=== PATIENT | male | born 1950 | race Caucasian/White ===

== ENCOUNTER → 2022-07-24 | Outpatient (CLI) | payer MEDICARE ==
--- NOTE | 2022-07-24 12:26 | US ---
EXAMINATION TYPE: US MSK right shoulder DATE OF EXAM: 07/24/2022 Comparison: No radiographic correlation available Clinical History: 72-year-old male M25.511 PAIN IN RT SHOULDER TECHNIQUE: Multiple sonographic images of the right shoulder were obtained. Findings: Some tissue is noted in the bicipital groove on transverse images. However, no clear tendon is identi fied on the longitudinal images. Some heterogeneous fluid is noted superiorly along the groove. There is heterogeneity and some thinning of the subscapularis tendon. There is a significant tear elsa suring at least 5 mm long. The normal subscapularis tendon fibers are not clearly depicted on transve rse imaging. At least mild degenerative change at the acromioclavicular joint. Limited assessment of the posterior shoulder due to tissue quality. There appears to be some joint fl uid within the posterior recess of the glenohumeral joint. The spinoglenoid groove appears clear. There is a massive full thickness tear involving the entire supraspinatus and infraspinatus tendons. Bursal fluid sits on top of the humeral head. The retracted stump is not clearly identified. Very echogenic appearance to both supraspinatus and infraspinatus muscle bellies. Impression: 1. Massive full thickness tear involving the entire supraspinatus and infraspinatus tendons. Acute on chronic injuries are favored given some bursal fluid in this region but also the presence of signifi cant fatty muscle atrophy. 2. The subscapularis tendon is at least partially torn. 3. Suspect torn and retracted long head biceps tendon.
== END | disposition home or self-care (01) ==
LOC: RADUSWWP 08:53
PROVIDERS: ATTEND Orthopaedic Surgery
DX: M75.101 Unspecified rotator cuff tear or rupture of right shoulder, not specified as traumatic (principal); M67.813 Other specified disorders of tendon, right shoulder

== ENCOUNTER → 2024-05-09 | Outpatient (CLI) | payer MEDICARE ==
--- NOTE | 2024-05-09 17:58 | CT ---
EXAMINATION TYPE: CT shoulder RT wo con DATE OF EXAM: 05/09/2024 5:55 PM COMPARISON: None CLINICAL INDICATION: Male, 74 years old with history of S92.352A DISP FX OF FIFTH METATARSAL BONE, LE FT FO; PHH, pre-op right total shoulder TECHNIQUE: Axial images were obtained of the CT shoulder RT wo con, Additional coronal and sagittal r eformatted images and soft tissue and bone window were obtained for review. 3-D reconstruction was cr eated on a separate workstation. Contrast used: mL of , (None if empty) Oral contrast used: (None if empty) CT DLP: 639.9 mGycm, Automated exposure control for dose reduction was used. FINDINGS: Mild degeneration changes of the glenohumeral and a common clavicular joints with osteophyt e formation and joint space narrowing. No significant subchondral cystic change identified. No eviden ce of fracture. There is a simple air cysts and cardiac conduction leads partially visualized in the chest. No evidence of fracture. There is high riding humeral head into the acromion with early acetab ularization of the acromion suggesting full-thickness rotator cuff tear. IMPRESSION: 1. No evidence of fracture. 2. Mild degeneration changes with evidence of full-thickness rotator cuff tear of the supraspinous w ith high riding humeral head into the acromion. [facility], , 05/09/2024 5:55 PM
== END | disposition home or self-care (01) ==
LOC: RADCTMAIN 16:43
PROVIDERS: ATTEND Orthopaedic Surgery Sports Medicine
DX: S92.352A Displaced fracture of fifth metatarsal bone, left foot, initial encounter for closed fracture (principal); M19.011 Primary osteoarthritis, right shoulder; M75.121 Complete rotator cuff tear or rupture of right shoulder, not specified as traumatic; X58.XXXA Exposure to other specified factors, initial encounter

== ENCOUNTER → 2024-05-19 | Outpatient (CLI) | payer MEDICARE ==
[2024-05-19 13:10] LABS: INR 0.9 (<1.2); Partial Thromboplastin Time 24.4 sec (22.0-30.0); Prothrombin Time 10.6 sec (10.0-12.5)
[2024-05-19 18:40] LABS: HCT 44.8 % (39.6-50.0); HGB 14.7 g/dL (13.0-17.0); MCH 31.5 pg (27.0-32.0); MCHC 32.8 g/dL (32.0-37.0); MCV 96.1 FL (80.0-97.0); NRBC Per 100 WBC 0 X 10*3/uL (0.00-0.01); Platelet Count 225 X 10*3/uL (140-440); RBC 4.66 X 10*6/uL (4.40-5.60); RDW 12.7 % (11.5-14.5); WBC 5.34 X 10*3/uL (4.50-10.00)
[2024-05-19 19:18] LABS: ALT 20 U/L (10-49); AST 21 U/L (14-35); Albumin 4.4 g/dL (3.8-4.9); Alkaline Phosphatase 66 U/L (41-126); BUN/Creat Ratio 14.55 Ratio (12.00-20.00); Calcium 9.7 mg/dL (8.7-10.3); Carbon Dioxide 23.8 mmol/L (21.6-31.8); Chloride 107 mmol/L (96-109); Globulin 2.1 g/dL (1.6-3.3); Glucose 90 mg/dL (70-110); Potassium 4.2 mmol/L (3.5-5.5); Sodium 143 mmol/L (135-145); Total Bilirubin 0.6 mg/dL (0.3-1.2); Total Protein 6.5 g/dL (6.2-8.2)
== END | disposition home or self-care (01) ==
LOC: LABPAT 11:49
PROVIDERS: ATTEND Internal Medicine
DX: Z01.818 Encounter for other preprocedural examination (principal); M19.90 Unspecified osteoarthritis, unspecified site; I44.30 Unspecified atrioventricular block; I44.7 Left bundle-branch block, unspecified; R94.31 Abnormal electrocardiogram [ECG] [EKG]; Z22.322 Carrier or suspected carrier of Methicillin resistant Staphylococcus aureus
CPT/HCPCS: 36415; 80053; 85027; 85610; 85730; 87070; 93005

== ENCOUNTER → 2024-08-12 | Outpatient (CLI) | payer MEDICARE ==
[2024-08-12 12:58] LABS: INR 0.8 (<1.2); Prothrombin Time 9.7 sec (10.0-12.5)
[2024-08-12 12:59] LABS: Partial Thromboplastin Time 23.4 sec (22.0-30.0)
[2024-08-12 15:27] LABS: HCT 42.6 % (39.6-50.0); HGB 14.1 g/dL (13.0-17.0); MCH 30.6 pg (27.0-32.0); MCHC 33.1 g/dL (32.0-37.0); MCV 92.4 FL (80.0-97.0); Mean Platelet Volume 10.8 FL (9.5-12.2); NRBC Per 100 WBC 0 X 10*3/uL (0.00-0.01); Platelet Count 213 X 10*3/uL (140-440); RBC 4.61 X 10*6/uL (4.40-5.60); RDW 12.9 % (11.5-14.5); WBC 7.17 X 10*3/uL (4.50-10.00)
[2024-08-12 15:31] LABS: ALT 18 U/L (10-49); AST 20 U/L (14-35); Albumin 4.1 g/dL (3.8-4.9); Albumin/Globulin Ratio 2.05 Ratio (1.60-3.17); Alkaline Phosphatase 78 U/L (41-126); BUN/Creat Ratio 22.88 Ratio (12.00-20.00); Blood Urea Nitrogen 18.3 mg/dL (9.0-27.0); Calcium 9.2 mg/dL (8.7-10.3); Carbon Dioxide 22.3 mmol/L (21.6-31.8); Chloride 107 mmol/L (96-109); Glucose 102 mg/dL (70-110); Potassium 4.3 mmol/L (3.5-5.5); Sodium 140 mmol/L (135-145); Total Bilirubin 0.4 mg/dL (0.3-1.2); Total Protein 6.1 g/dL (6.2-8.2)
== END | disposition home or self-care (01) ==
LOC: LABPAT 11:57
PROVIDERS: ATTEND Orthopaedic Surgery Sports Medicine
DX: Z01.812 Encounter for preprocedural laboratory examination (principal); T84.028A Dislocation of other internal joint prosthesis, initial encounter; Z22.322 Carrier or suspected carrier of Methicillin resistant Staphylococcus aureus
CPT/HCPCS: 80053; 85027; 85610; 85730; 87070

== ENCOUNTER 2024-08-15 11:42 | Day surgery (SDC) | payer MEDICARE ==
[~2024-08-15 11:42] MED LIST: TRANEXAMIC 1,000 MG/100ML-NACL 1,000 MG in SALINE 1 100ML.BAG IVPB PRN; fentaNYL (PF) 50 MCG/ML 2 ML AMP IV PRN
[2024-08-15] MEDS: MELOXICAM 7.5 MG TAB PO PRN (12:55)
[2024-08-15] MEDS: GABAPENTIN 300 MG CAP PO PRN (12:55)
[2024-08-15] MEDS: ACETAMINOPHEN TAB 500 MG TAB PO PRN (12:55)
[2024-08-15] MEDS: ONDANSETRON 4 MG/2 ML VIAL IVP PRN (12:56)
[2024-08-15] MEDS: DEXAMETHASONE SOD PHOSPHATE 4 MG/ML 1 ML VIAL IVP STA (12:57)
[2024-08-15] MEDS: IV FLUID CONTINUATION 1,000 ML IV ONE (13:10)
[2024-08-15] MEDS: MIDAZOLAM 2 MG/2 ML VIAL IV STA (14:13)
--- NOTE | 2024-08-15 14:20 | P.ANPRN ---
Procedure Note - Anesthesia - Nerve Block Performed Right Interscalene Single Time Out Performed: Yes Date of Procedure: 08/15/24 Procedure Start Time: 13:53 Procedure Stop Time: 13:59 Location of Patient: PreOp Indication: Acute Post-Operative Pain, Requested by Surgeon Sedation Type: Sedate with meaningful contact maintained Preparation: Sterile Prep Position: Supine Needle Types: Pajunk Needle Gauge: 21 Ultrasound used to visualize needle placement: Yes Ultrasound used to observe medication spread: Yes Blood Aspirated: No Pain Paresthesia on Injection Noted: No Resistance on Injection: Normal Image Stored and Saved: Yes Events: Uneventful and Well Tolerated (Ropivacaine 0.5% 20 cc plus dexamethasone 4 mg)
[2024-08-15] MEDS ORDERED: ROCURONIUM 10 MG/ML (5 ML VIAL) IV ONE (14:56)
[2024-08-15] MEDS ORDERED: PHENYLEPHRINE 10 MG/ML VIAL ONE (14:56)
[2024-08-15] MEDS ORDERED: TRANEXAMIC 1,000 MG/100ML-NACL PREMIX BAG ONE (14:56)
[2024-08-15] MEDS ORDERED: DEXAMETHASONE SOD PHOSPHATE 4 MG/ML 1 ML VIAL ONE (14:56)
[2024-08-15] MEDS ORDERED: SUCCINYLCHOLINE CHLORIDE 200 MG/10 ML VIAL IV ONE (14:56)
[2024-08-15] MEDS ORDERED: ROPIVACAINE 5 MG/ML 30 ML VIAL ONE (14:56)
[2024-08-15] MEDS ORDERED: LIDOCAINE 1% INJ 10MG/ML (20 ML MDV) ONE (14:56)
[2024-08-15] MEDS ORDERED: NEOSTIGMINE 1 MG/ML 10 ML VIAL ONE (14:56)
[2024-08-15] MEDS ORDERED: MIDAZOLAM 2 MG/2 ML VIAL ONE (14:56)
[2024-08-15] MEDS ORDERED: GLYCOPYRROLATE 0.2 MG/ML 2 ML VIAL ONE (14:56)
[2024-08-15] MEDS ORDERED: fentaNYL (PF) 50 MCG/ML 2 ML AMP ONE (14:56)
[2024-08-15] MEDS ORDERED: ETOMIDATE 2 MG/ML 10 ML VIAL ONE (14:56)
[2024-08-15] MEDS: VANCOMYCIN 1,000 MG VIAL MISCELLANE ONE (15:01)
[2024-08-15] MEDS: ceFAZolin 1,000 MG in SODIUM CHLORIDE 0.9% 1,000 ML IRRIGATION ONE (15:01)
[2024-08-15] MEDS: ceFAZolin 2 GM in DEXTROSE 5% IN WATER 50 ML IVPB PRN (15:01)
[2024-08-15] MEDS ORDERED: SENNOSIDES-DOCUSATE SODIUM 1 EACH TAB PO PRN (15:03)
[2024-08-15] MEDS ORDERED: diphenhydrAMINE 25 MG CAP PO PRN (15:03)
[2024-08-15] MEDS ORDERED: ONDANSETRON 4 MG/2 ML VIAL IVP PRN ×2 (15:03→21:49)
[2024-08-15] MEDS ORDERED: HYDROmorphone 0.5 MG/0.5 ML SYRINGE IVP PRN ×4 (15:03→16:59)
[2024-08-15] MEDS ORDERED: HYDROcodone/APAP 7.5-325MG 1 EACH TAB PO PRN ×2 (15:06)
[2024-08-15] MEDS: HYDROmorphone 0.5 MG/0.5 ML SYRINGE IVP ONE (17:00)
--- NOTE | 2024-08-15 17:04 | XR ---
EXAMINATION TYPE: XR shoulder limited RT DATE OF EXAM: 08/15/2024 4:58 PM INDICATION: Patient age:Male; 74 years old; Reason for study: post op; pain COMPARISON: Right shoulder radiograph 05/26/2024 TECHNIQUE: The right shoulder was examined in single AP projection. FINDINGS: Postsurgical changes from right shoulder reverse arthroplasty again. Hardware appears intact. There i s associated soft tissue gas and edema. No acute fracture or dislocation. The visualized portion of t he chest is unremarkable. IMPRESSION: Postsurgical formation of the arthroplasty again. Hardware appears intact with appropriate alignment on single view. [facility], , 08/15/2024 5:02 PM
[2024-08-15] MEDS: LACTATED RINGERS 1,000 ML IV SCH ×2 (21:19→21:20)
[2024-08-15] MEDS: SOTALOL 80 MG TAB PO SCH (22:31)
[2024-08-15] MEDS: PANTOPRAZOLE 40 MG TABLET PO SCH (22:31)
[2024-08-15] MEDS: ATORVASTATIN 40 MG TAB PO SCH (22:31)
[2024-08-15] MEDS: ceFAZolin 2 GM in DEXTROSE 5% IN WATER 50 ML IVPB SCH (22:32)
[2024-08-16 04:42] LABS: African American GFR (CKD) >90 (>60 ml/min/1.73 sqM); Anion Gap 8 mmol/L; Blood Urea Nitrogen 15 mg/dL (9-20); Calcium 8.9 mg/dL (8.4-10.2); Carbon Dioxide 22 mmol/L (22-30); Chloride 105 mmol/L (98-107); Glucose 124 mg/dL (74-99); Non-African American GFR(CKD) >90 (>60 ml/min/1.73 sqM); Potassium 3.9 mmol/L (3.5-5.1); Sodium 135 mmol/L (137-145)
[2024-08-16 08:05] VITALS: BP 102/58; PULSE 60; RESP 15; TEMP 98
[2024-08-16 08:21] LABS: Basophils # (A) 0 X 10*3/uL (0.00-0.10); Basophils % (A) 0 %; Eosinophils # (A) 0 X 10*3/uL (0.04-0.35); Eosinophils % (A) 0 %; HCT 36.2 % (39.6-50.0); Lymphocytes # (A) 0.44 X 10*3/uL (0.90-5.00); Lymphocytes % (A) 4.8 %; MCH 30.9 pg (27.0-32.0); MCHC 33.1 g/dL (32.0-37.0); MCV 93.3 FL (80.0-97.0); Mean Platelet Volume 10.9 FL (9.5-12.2); Monocytes # (A) 0.33 X 10*3/uL (0.20-1.00); Monocytes % (A) 3.6 %; NRBC Per 100 WBC 0 X 10*3/uL (0.00-0.01); Neutrophils # (A) 8.36 X 10*3/uL (1.80-7.70); Neutrophils % (A) 91.2 %; Platelet Count 189 X 10*3/uL (140-440); RBC 3.88 X 10*6/uL (4.40-5.60); RDW 12.6 % (11.5-14.5); WBC 9.17 X 10*3/uL (4.50-10.00)
--- NOTE | 2024-08-16 10:16 | OP ---
OPERATIVE REPORT DATE OF SERVICE : 08/15/2024 PREOPERATIVE DIAGNOSIS: Right shoulder failure of glenosphere, reverse total shoulder arthroplasty. 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 PROCEDURE PERFORMED: Right shoulder revision glenosphere component and humeral tray and poly components for right reverse total shoulder arthroplasty. ANESTHESIA: General endotracheal. ESTIMATED BLOOD LOSS: 50 mL. DRAINS: None. COMPLICATIONS: None apparent. DISPOSITION: Postanesthesia care unit. INDICATIONS: Enmanuel is a very pleasant 74-year-old male, who underwent right reverse total shoulder arthroplasty by myself on May 26, 2024. He did quite well until last Thursday. Per history, he was out fishing all day and then went to bed at 3 o'clock in the morning and woke up at 6 o'clock in the morning with shoulder pain and clunking in the shoulder. He presented to my office. X-rays revealed a clear glenosphere dissociation from the base plate. There were no fractures or any other apparent complications at that time. Recommendation was for revision of the glenosphere with probable revision of the humeral tray and a humeral polyethylene as well. Enmanuel would like to proceed with the operative intervention. The risks of procedure were discussed with him in detail. These risks included, but were not limited to risk of infection, nerve damage, bleeding, pain, instability in the shoulder, loosening of the implants, and deep infection. There is also a small risk of further glenosphere dissociation. There is also a small risk of deep vein thrombosis, which could lead to fatal pulmonary embolism. The patient understood these risks. All of his questions with regard to the risks of procedure were answered to his satisfaction. Appropriate informed consent was obtained. DESCRIPTION OF PROCEDURE: The patient was identified in the preoperative holding area. Surgical site was marked by both the patient and myself. He was given 2 g of Ancef IV for prophylactic purposes. He was then transported to the operative suite. He was placed supine on the operating table. General anesthetic was then administered and dosed per the Anesthesia Department without apparent complication. The patient was then placed into the beach chair position well-padded in preparation for surgery. Great care was taken to ensure that his neck was in neutral alignment well-padded and maintained that way throughout the operative procedure. Great care was taken to ensure that his legs were appropriately padded as well. The patient's right upper extremity was then prepped and draped in usual sterile fashion. Standard surgical pause was undertaken to ensure that we were operating the correct site and that appropriate preoperative antibiotics were given. All staff in room were in agreement, and we proceeded. The acromion AC joint clavicle, coracoid, and previous incision were marked with a surgical pen. The incision using the previous incision was then made with a 10-blade scalpel. Dissection was carried down sharply to the deltoid fascia. The deltopectoral interval was then identified at the level of the clavicle. A small band retractor was then placed onto the proximal deltoid. I then released the fascia on the lateral aspect of the cephalic vein. The vein was left in its bed medially. The cephalic vein was protected throughout the entire case. I then was able to bluntly dissect the scar tissue away from the proximal humerus. At this point, easily I was able to retrieve the glenosphere. I then placed the arm in approximately 80 degrees of abduction and in slight flexion on the Acosta stand. The Bhattman retractor was then placed on the posterior glenoid rim. Of note, I did remove the humeral tray and polyethylene prior to exposing the glenoid. There was just slight damage to the edge of the polyethylene. This was likely from contacting the dissociated glenosphere. The stem was firmly fixed. I then exposed the glenoid. I first checked for the central screw. The central screw was seated. I did use the screwdriver to ensure that it was fully seated and then the guide to ensure that it was fully seated as well. The Rutledge taper was then cleared of any debris. At this point, I had the licensing representative open a new glenosphere. It was a 40 mm [employer] glenosphere. I did offset it inferiorly, slightly more this time. The offset was between the B and the C. The Rutledge taper was dried and then it was impacted onto the base plate. It was very firm fit. I could not dissociate the glenosphere once it was firmly seated. I then proceeded to trial. I started with a standard tray and standard poly. It was a mildly difficult reduction. The shoulder was stable throughout a full range of motion. There was no impingement noted. I made a decision to proceed with the standard tray and standard poly. Again the shoulder was redislocated. I had the licensing representative open a new tray and a standard poly for a 40 mm glenosphere. These were assembled on the back table and then impacted onto the dried Rutledge taper of the stem. I then reduced the shoulder again. Again, it was a mildly difficult reduction. There was not any undue tension on the conjoint tendon. It was very stable throughout a full range of motion without any impingement noted. At this point, we used the IrriSept antiseptic solution. This was left in the shoulder for approximately 5 minutes. This was then suctioned out. We proceeded with closure. Approximately 500 mg of vancomycin powder was then placed deep. The deltopectoral interval was then reapproximated with 0 Vicryl interrupted suture. Prior to closing the deltoid, I did feel for the axillary nerve which was readily palpable and seemingly uninjured. The remaining 500 mg of vancomycin powder was then placed subcutaneously. The subcutaneous tissue was then closed with 2-0 Vicryl interrupted suture and the skin was closed with a running 3-0 Quill suture. Dermabond was applied to the incision. Sterile dressing was applied. The patient's right upper extremity was placed into a standard sling. All sponge and needle counts were deemed correct prior to closure. The patient tolerated the procedure without apparent complication. He was transferred to the recovery room in stable condition. MMODL / IJN: [id number] /
--- NOTE | 2024-08-16 13:53 | P.CONS ---
History of Present Illness - Reason for Consult Consult date: 08/16/24 Medical management - History of Present Illness History of present illness; patient is 74-year-old gentleman with past medical history significant for right total shoulder arthroplasty in May 26, 2024 who presents hospital for elective right reverse total shoulder arthroplasty. Patient was following up outpatient with orthopedics for shoulder pain. Patient had x-ray done that revealed a clear glenosphere dissociation from the baseplate. Orthopedic discussed with patient and the plan was for patient to undergo right reverse total shoulder arthroplasty. Postoperatively internal medicine team were consulted for medical management REVIEW OF SYSTEMS: CONSTITUTIONAL: No fever, no malaise, no fatigue. HEENT: No recent visual problems or hearing problems. Denied any sore throat. CARDIOVASCULAR: No chest pain, orthopnea, PND, no palpitations, no syncope. PULMONARY: No shortness of breath, no cough, no hemoptysis. GASTROINTESTINAL: No diarrhea, no nausea, no vomiting, no abdominal pain. NEUROLOGICAL: No headaches, no weakness, no numbness. HEMATOLOGICAL: Denies any bleeding or petechiae. GENITOURINARY: Denies any burning micturition, frequency, or urgency. MUSCULOSKELETAL/RHEUMATOLOGICAL: Denies any joint pain, swelling, or any muscle pain. ENDOCRINE: Denies any polyuria or polydipsia. The rest of the 14-point review of systems is negative. PHYSICAL EXAMINATION: GENERAL: The patient is alert and oriented x3, not in any acute distress. Well developed, well nourished. HEENT: Pupils are round and equally reacting to light. EOMI. No scleral icterus. No conjunctival pallor. Normocephalic, atraumatic. No pharyngeal erythema. No thyromegaly. CARDIOVASCULAR: S1 and S2 present. No murmurs, rubs, or gallops. PULMONARY: Chest is clear to auscultation, no wheezing or crackles. ABDOMEN: Soft, nontender, nondistended, normoactive bowel sounds. No palpable organomegaly. MUSCULOSKELETAL: No joint swelling or deformity. EXTREMITIES: No cyanosis, clubbing, or pedal edema. NEUROLOGICAL: Gross neurological examination did not reveal any focal deficits. SKIN: No rashes. Assessment and plan Right shoulder pain status post right reverse total shoulder arthroplasty. History of hypertension History of hyperlipidemia Monitor vital signs Monitor CBC Continue pain management per orthopedics Continue DVT prophylaxis per orthopedics Aggressive bowel regimen to prevent opioid-induced constipation Resume home meds PT and OT consulted Labs and medication were reviewed.. Continue same treatment. Continue with symptomatic treatment. Resume home medication. Monitor labs and vitals. DVT and GI prophylaxis. Further recommendations as per clinical course of the patient Dictation was produced using [employer] dictation software. please excuse any grammatical, word or spelling errors. Past Medical History Past Medical History: Cancer, Chest Pain / Angina, GERD/Reflux, Hyperlipidemia, Myocardial Infarction ([place]), Osteoarthritis (OA), Vascular Disorder Additional Past Medical History / Comment(s): sob with exertion, hx of prostate cancer -radiation last 11/2023. hx of skin cancer to face. hiatal hernia, rt shoulder pain, severe neck arthritis,per pt 22% EF. AAA 4.7cm being watched. vertigo,menieres diesase. numbness to feet. Last Myocardial Infarction Date:: 03/04/2005,03/04/2006 History of Any Multi-Drug Resistant Organisms: None Reported Past Surgical History: AICD, Heart Catheterization With Stent, Hernia Repair, Pacemaker, Tonsillectomy Additional Past Surgical History / Comment(s): eye surgery,- eyelids. colonoscopy,egd. stent in LAD, PM,AICD left chest 2004. rt shoulder surgery Past Anesthesia/Blood Transfusion Reactions: Postoperative Nausea & Vomiting (PONV) Additional Past Anesthesia/Blood Transfusion Reaction / Comm: severe post n/v, has his own scope patches, needs zofran plans to put a scope patch on a.m. of procedure. uses zofran and meclizine for vertigo and menieres as needed. Date of Last Stent Placement:: 2004 Type of Cardiac Device: Permanent Pacemaker, AICD Device Placement Date:: ?2022 medtronic Past Psychological History: Depression Smoking Status: Never smoker Past Alcohol Use History: Rare Past Drug Use History: Marijuana Additional Drug Use History / Comment(s): smokes THC daily and will taper off . pt aware not smoke 24 hrs before procedure. - Past Family History Mother Additional Family Medical History / Comment(s): covid leading to . kidney failure Father Family Medical History: Cancer, Myocardial Infarction ([place]) Additional Family Medical History / Comment(s): cancer pancreas family hx Family Medical History: Cancer, Myocardial Infarction ([place]) Additional Family Medical History / Comment(s): covid leading to kidney failure. Medications and Allergies Home Medications Medication Instructions Recorded Confirmed Type Aspirin EC [Ecotrin Low Dose] 81 mg PO DAILY 05/24/24 08/12/24 History Clopidogrel [Plavix] 75 mg PO DAILY 05/24/24 08/12/24 History Immodium 1 tab PO DIRECTED PRN 05/24/24 08/12/24 History Meclizine [Antivert] 25 mg PO DIRECTED PRN 05/24/24 08/12/24 History Nitroglycerin Sl Tabs [Nitrostat] 0.4 mg SUBLINGUAL DIRECTED PRN 05/24/24 08/12/24 History Ondansetron [Ondansetron ODT] 4 mg PO DIRECTED PRN 05/24/24 08/12/24 History RABEprazole SODIUM 20 mg PO AC-BID 05/24/24 08/12/24 History Rosuvastatin [Crestor] 20 mg PO HS 05/24/24 08/12/24 History Scopolamine [Scopolamine 1 MG/72 1 patch TRANSDERM Q72H PRN 05/24/24 08/12/24 History HR patch] Sotalol [Betapace] 80 mg PO BID 05/24/24 08/12/24 History Spironolactone 50 mg PO DAILY 05/24/24 08/12/24 History lisinopriL [Zestril] 20 mg PO DAILY 05/24/24 08/12/24 History Doxycycline Hyclate 100 mg PO BID 7 Days #14 tab 08/15/24 Rx Docusate [Colace] 100 mg PO BID #60 capsule 08/16/24 Rx HYDROcodone/APAP 5-325MG [[place] 1 - 2 tab PO Q4HR PRN #20 tab 08/16/24 Rx 5-325] Ondansetron [Zofran] 4 mg PO Q8HR PRN #21 tab 08/16/24 Rx Allergies Allergy/AdvReac Type Severity Reaction Status Date / Time morphine Allergy twists, Verified 08/15/24 12:29 sweats doesnt feel right Physical Exam Vitals: Vital Signs Temp Pulse Resp BP Pulse Ox 08/16/24 08:02 60 15 08/16/24 07:35 98 F 60 15 102/58 96 08/16/24 01:08 98.1 F 63 17 101/60 94 L 08/15/24 20:42 59 L 122/67 08/15/24 20:25 57 L 112/62 98 08/15/24 20:10 60 114/64 96 08/15/24 19:55 61 122/68 96 08/15/24 19:40 64 120/72 98 08/15/24 19:25 60 128/67 98 08/15/24 19:10 61 135/73 98 08/15/24 19:05 97.9 F 60 16 125/70 98 08/15/24 18:55 59 L 130/71 98 08/15/24 18:40 87 154/88 100 08/15/24 17:50 58 L 14 127/65 97 08/15/24 17:35 60 14 119/66 96 08/15/24 17:20 71 14 137/76 93 L 08/15/24 17:05 59 L 14 139/71 98 08/15/24 16:50 76 14 142/77 100 08/15/24 16:35 97 F L 60 16 137/83 98 08/15/24 14:03 64 16 123/65 95 Intake and Output 08/15/24 08/16/24 08/16/24 22:59 06:59 14:59 Intake Total 551 Output Total 50 400 Balance 501 -400 Intake: IV 551 Output: Urine 400 Estimated Blood Loss 50 Other: Voiding Method Toilet Urinal # Voids 1 Weight 97 kg Results CBC & Chem 7: 08/16/24 03:32 08/16/24 03:32 Labs: Abnormal Lab Results - Last 24 Hours (Table) 08/16/24 08/16/24 Range/Units 03:32 03:32 RBC 3.88 L (4.40-5.60) X 10*6/uL Hgb 12.0 L (13.0-17.0) g/dL Hct 36.2 L (39.6-50.0) % Neutrophils # 8.36 H (1.80-7.70) X 10*3/uL Lymphocytes # 0.44 L (0.90-5.00) X 10*3/uL Eosinophils # 0 L (0.04-0.35) X 10*3/uL Sodium 135 L (137-145) mmol/L Glucose 124 H (74-99) mg/dL
--- NOTE | 2024-08-16 14:22 | P.DS ---
Providers Expected date of discharge: 08/16/24 Attending physician: Jovani Aparicio Consults: 08/15/24 15:03 Consult Physician Routine Consulting Provider: Virgil Miguel Consult Reason/Comments: post op medical management Do you want consulting provider notified?: Yes Primary care physician: Mauricio Marin MD - Discharge Diagnosis(es) (1) Osteoarthritis of right shoulder Patient was admitted to the OR on 06/17/24 to undergo a revision right total shoulder arthroplasty. He had previous TSA perfomed about 3 months ago. The ball on the glenoid has dislodged as an outpatient recently and he desired to proceed with elective surgery after given informed consent. He underwent the above procedure which he tolerated well without complication. Postoperative hospital course has remained without complication. On day of discharge he is afebrile, vital signs stable, labs within acceptable ranges, tolerating by mouth meds and diet, voiding without difficulty, positive flatus, denies abdominal pain or calf pain, pain is controlled on oral pain medication and has no new complaints. Wound is benign, neurovascular status is intact, calves are soft and nontender, abdomen soft and nontender. Review of systems is negative for numbness, tingling, fever, chills, chest pain, shortness of breath, nausea, vomiting, dizziness, headaches, slurred speech or other. Status: Acute Priority: Medium Procedures: Revision right TSA Patient Condition at Discharge: Good Plan - Discharge Summary Discharge Rx Participant: Yes New Discharge Prescriptions: New Doxycycline Hyclate 100 mg PO BID 7 Days #14 tab Docusate [Colace] 100 mg PO BID #60 capsule HYDROcodone/APAP 5-325MG [Orient 5-325] 1 - 2 tab PO Q4HR PRN #20 tab PRN Reason: Pain Ondansetron [Zofran] 4 mg PO Q8HR PRN #21 tab PRN Reason: Nausea No Action Clopidogrel [Plavix] 75 mg PO DAILY Rosuvastatin [Crestor] 20 mg PO HS Nitroglycerin Sl Tabs [Nitrostat] 0.4 mg SUBLINGUAL DIRECTED PRN PRN Reason: Chest Pain Meclizine [Antivert] 25 mg PO DIRECTED PRN PRN Reason: sea sickness Sotalol [Betapace] 80 mg PO BID RABEprazole SODIUM 20 mg PO AC-BID lisinopriL [Zestril] 20 mg PO DAILY Immodium 1 tab PO DIRECTED PRN PRN Reason: Diarrhea Ondansetron [Ondansetron ODT] 4 mg PO DIRECTED PRN PRN Reason: Nausea Aspirin EC [Ecotrin Low Dose] 81 mg PO DAILY Scopolamine [Scopolamine 1 MG/72 HR patch] 1 patch TRANSDERM Q72H PRN PRN Reason: sea sickness Spironolactone 50 mg PO DAILY Discharge Medication List Aspirin EC [Ecotrin Low Dose] 81 mg PO DAILY 05/24/24 [History] Clopidogrel [Plavix] 75 mg PO DAILY 05/24/24 [History] Immodium 1 tab PO DIRECTED PRN 05/24/24 [History] Meclizine [Antivert] 25 mg PO DIRECTED PRN 05/24/24 [History] Nitroglycerin Sl Tabs [Nitrostat] 0.4 mg SUBLINGUAL DIRECTED PRN 05/24/24 [History] Ondansetron [Ondansetron ODT] 4 mg PO DIRECTED PRN 05/24/24 [History] RABEprazole SODIUM 20 mg PO AC-BID 05/24/24 [History] Rosuvastatin [Crestor] 20 mg PO HS 05/24/24 [History] Scopolamine [Scopolamine 1 MG/72 HR patch] 1 patch TRANSDERM Q72H PRN 05/24/24 [History] Sotalol [Betapace] 80 mg PO BID 05/24/24 [History] Spironolactone 50 mg PO DAILY 05/24/24 [History] lisinopriL [Zestril] 20 mg PO DAILY 05/24/24 [History] Doxycycline Hyclate 100 mg PO BID 7 Days #14 tab 08/15/24 [Rx] Docusate [Colace] 100 mg PO BID #60 capsule 08/16/24 [Rx] HYDROcodone/APAP 5-325MG [[place]rient 5-325] 1 - 2 tab PO Q4HR PRN #20 tab 08/16/24 [Rx] Ondansetron [Zofran] 4 mg PO Q8HR PRN #21 tab 08/16/24 [Rx] Follow up Appointment(s)/Referral(s): Mauricio Marin MD [Primary Care Provider] - 1 Week (Office is not answering. please call for follow-up appointment.) Jovani Aparicio MD [STAFF PHYSICIAN] - 08/17/24 8:30 am (also another appointment August 26 at 9:00AM) Activity/Diet/Wound Care/Special Instructions: maintain sling keep wound clean and dry take meds as directed may shower in 3 days if no bleeding F/U in office Discharge Disposition: HOME SELF-CARE
== END 2024-08-16 13:38 | disposition home or self-care (01) ==
LOC: ORWHC2ENDO 11:42 → EDSTATUS 14:45 → 4SSUR 18:03 → ORWHC2ENDO 08-16 13:38
PROVIDERS: ATTEND Orthopaedic Surgery Sports Medicine
DX: T84.028A Dislocation of other internal joint prosthesis, initial encounter (principal); E78.5 Hyperlipidemia, unspecified; G89.18 Other acute postprocedural pain; I10 Essential (primary) hypertension; K21.9 Gastro-esophageal reflux disease without esophagitis; M19.011 Primary osteoarthritis, right shoulder; I25.2 Old myocardial infarction; Z79.02 Long term (current) use of antithrombotics/antiplatelets; Z79.82 Long term (current) use of aspirin; Z79.899 Other long term (current) drug therapy; Z85.46 Personal history of malignant neoplasm of prostate; Z85.828 Personal history of other malignant neoplasm of skin; Z98.890 Other specified postprocedural states; Z90.89 Acquired absence of other organs; Z88.5 Allergy status to narcotic agent; Y83.8 Other surgical procedures as the cause of abnormal reaction of the patient, or of later complication, without mention of misadventure at the time of the procedure
CPT/HCPCS: 23473; 64415; 80048; 85025; 73020; C1776; J2250; J3370; J0330; J1100; J2710; J0690 ×3; J2405; J2003; J3010; J2795; J1171; J2371; J1596